=== PATIENT | female | born 1970 | race Caucasian/White ===

== ENCOUNTER 2016-11-26 08:37 | Emergency (ER) | payer OTHER ==
[~2016-11-26] VITALS: Ht 160 cm; Wt 99.0 kg
[~2016-11-26 08:37] MED LIST: CEPH-443 PO; CEPH500C PO; IBUP-1542 PO; ONDA4TAB35 PO
[2016-11-26 08:48] VITALS: Ht 160 cm; Wt 99.0 kg
[2016-11-26] MEDS ORDERED: CETI10CA PO (09:08)
--- NOTE | 2016-11-26 09:29 | ERD ---
ER Documentation Chief Complaint Date/Time DATE: 11/26/16 TIME: 09:26 Chief Complaint RT EAR PAIN X 1 DAY. POSSIBLE FB (INSECT) HPI 46 yo female comes in with a crawling sensation in her right ear canal that started at 3 AM this morning while she was sleeping. Patient reports that this lasted for about 2 hours and alleviated on its own. She did try to clean her ear but did not retrieve any foreign body. She denies any foreign body movement , buzzing, tinnitus. She denies hearing loss or ear pain, otorrhea or discharge. She denies fevers or chills. ROS All systems reviewed and are negative except as per history of present illness. Medications Home Meds Active Scripts Cetirizine Hcl* (Zyrtec*) 10 Mg Capsule, 10 MG PO DAILY, #30 TAB.CHEW Prov:OSMAR JOYNER PA-C 11/26/16 Cephalexin* (Keflex*) 500 Mg Capsule, 500 MG PO QID for 7 Days, CAP Prov:OSMAR JOYNER PA-C 02/15/16 Ondansetron Hcl* (Zofran* ODT) 4 mg -ODT Tab.disper, 4 MG PO Q6 Y for NAUSEA AND /OR VOMITING, #10 TAB Prov:DEENA WATERMAN NP 08/25/15 Cephalexin* (Cephalexin*) 500 Mg Capsule, 500 MG PO QID for 5 Days, CAP Prov:PALOMO GUERRA MD 11/22/14 Ibuprofen* (Ibuprofen*) 600 Mg Tablet, 600 MG PO Q6, #30 TAB Prov:PALOMO GUERRA MD 11/22/14 Allergies Allergies: Coded Allergies: No Known Allergy (Unverified , 03/02/14) PMhx/Soc History of Surgery: Yes (ECTOPIC PREG , CHOLECYSTECTOMY , shoulder) Anesthesia Reaction: No Hx Neurological Disorder: No Hx Respiratory Disorders: No Hx Cardiac Disorders: No Hx Psychiatric Problems: No Hx Miscellaneous Medical Probl: Yes (diabetes, gastritis) Hx Alcohol Use: No Hx Substance Use: No Hx Tobacco Use: No Smoking Status: Never smoker Physical Exam Vitals Vital Signs Date Time Temp Pulse Resp B/P Pulse Ox O2 Delivery O2 Flow Rate FiO2 11/26/16 08:48 97.3 70 19 136/79 100 Physical Exam General: Well-developed, well-nourished. The patient appears in no acute distress. HEENT: Head is normocephalic, atraumatic. No scleral icterus. Right ear is clear, tympanic membrane is well-visualized, there is no erythema, no drainage, no otorrhea or discharge, no hemotympanum. There is no foreign body. Hearing is normal. Left ear is unremarkable. Neck: Supple. Nontender. Lungs: Clear to auscultation. Normal air movement. Heart: Regular rate and rhythm. S1 and S2 are normal. No murmurs, gallops, or rubs. Abdomen: Nondistended. Extremities: No clubbing or cyanosis. Moving extremities x 4. No weakness. Neurologic: Alert and oriented 3. No focal deficits. Normal speech and gait. Skin: Normal turgor. No rash or lesions. Procedures/MDM 46-year-old female comes in with a crawling sensation in her right ear canal, she states it lasted about 2 hours and relieved on its own. Differential diagnoses are considered with are not limited to foreign body, tinnitus, allergic rhinitis, tympanic membrane perforation, serous otitis media. She at this time states she is asymptomatic, does not have any pain or and her ear does appear to be normal. There is no foreign body seen. Patient is to return if she has any pain, drainage, return of symptoms, in the meantime, patient will be started on Zyrtec. Departure Diagnosis: Primary Impression: Normal physical examination Condition: Good Patient Instructions: Normal Exam, (Child) (Adult) Additional Instructions: Call your primary care doctor TOMORROW for an appointment during the next 1-2 days.See the doctor sooner or return here if your condition worsens before your appointment time. OSMAR JOYNER PA-C Nov 26, 2016 09:29
== END 2016-11-26 09:20 | disposition home or self-care (01) ==
LOC: FTE 08:37
DX: Z00.00 Encounter for general adult medical examination without abnormal findings (principal); E11.9 Type 2 diabetes mellitus without complications
CPT/HCPCS: 99283

== ENCOUNTER 2018-12-20 11:01 | Emergency (ER) | payer OTHER ==
[~2018-12-20] VITALS: Ht 165.1 cm; Wt 84.0 kg
[~2018-12-20 11:01] MED LIST changes: +CETI10CA PO; +LORA-441 PO
[2018-12-20 11:10] VITALS: Ht 165.1 cm; Wt 84.0 kg
--- NOTE | 2018-12-20 12:26 | ERD ---
ER Documentation Chief Complaint Chief Complaint pt is bib self with c/o vaginal dryness and "feels swollen" HPI Patient is a 48 years old female presenting to the clinic for severe dry vagina and pruritus x few weeks. Patient reports LMP in mid October (cannot recall exact date). Patient reports dryness makes it very painful. Patient denies , urinary symptoms, and vaginal discharge. Patient denies taking any OTC medication. ROS All systems reviewed and are negative except as per history of present illness. Medications Home Meds Active Scripts Fluconazole* (Diflucan*) 150 Mg Tablet, 150 MG PO ONCE, #1 TAB Prov:MISAEL TOMPKINS PA-C 12/20/18 Estradiol* (Estrace* Vag) 0.01%-42.5GM Vaginal Cream..g., 1 APPLIC VAG BID for 7 Days, #1 TUB Prov:MISAEL TOMPKINS PA-C 12/20/18 Lorazepam* (Ativan*) 0.5 Mg Tablet, 0.5 MG PO Q8H PRN for ANXIETY, #10 TAB Prov:CHAYO METCALF MD 03/04/18 Ibuprofen* (Motrin*) 600 Mg Tab, 600 MG PO Q8, #30 TAB Prov:CHAYO METCALF MD 03/04/18 Cetirizine Hcl* (Zyrtec*) 10 Mg Capsule, 10 MG PO DAILY, #30 TAB.CHEW Prov:OSMAR JOYNER PA-C 11/26/16 Cephalexin* (Keflex*) 500 Mg Capsule, 500 MG PO QID for 7 Days, CAP Prov:OSMAR JOYNER PA-C 02/15/16 Ondansetron Hcl* (Zofran* ODT) 4 mg -ODT Tab.disper, 4 MG PO Q6 PRN for NAUSEA AND/OR VOMITING, #10 TAB Prov:DEENA WATERMAN NP 08/25/15 Cephalexin* (Cephalexin*) 500 Mg Capsule, 500 MG PO QID for 5 Days, CAP Prov:PALOMO GUERRA MD 11/22/14 Ibuprofen* (Ibuprofen*) 600 Mg Tablet, 600 MG PO Q6, #30 TAB Prov:PALOMO GUERRA MD 11/22/14 Allergies Allergies: Coded Allergies: No Known Allergy (Unverified , 03/02/14) PMhx/Soc History of Surgery: Yes (ECTOPIC PREG , CHOLECYSTECTOMY , shoulder) Anesthesia Reaction: No Hx Neurological Disorder: No Hx Respiratory Disorders: No Hx Cardiac Disorders: No Hx Psychiatric Problems: No Hx Miscellaneous Medical Probl: Yes ( gastritis) Hx Alcohol Use: No Hx Substance Use: No Hx Tobacco Use: No Smoking Status: Never smoker Physical Exam Vitals Vital Signs Date Temp Pulse Resp B/P (MAP) Pulse Ox O2 O2 Flow FiO2 Time Delivery Rate 12/20/18 98.9 96 16 147/90 99 11:10 (109) Physical Exam Const: No acute distress Head: Atraumatic Eyes: Normal Conjunctiva ENT: Normal External Ears, Nose and Mouth. Neck: Full range of motion. No meningismus. Resp: Clear to auscultation bilaterally Cardio: Regular rate and rhythm, no murmurs Abd: Soft, non tender, non distended. Normal bowel sounds Skin: No petechiae or rashes Back: No midline or flank tenderness Ext: No cyanosis, or edema Neur: Awake and alert Psych: Normal Mood and Affect External vaginal Exam (ANEUDY Maritnez): Dry, atrophic external vagina without any rash or mass. No discharge noted. Results 24 hrs Laboratory Tests Test 12/20/18 12:13 12/20/18 12:18 Urine Color STRAW Urine Clarity CLEAR Urine pH 6.0 Urine Specific Eva 1.033 Urine Ketones NEGATIVE mg/dL Urine Nitrite NEGATIVE mg/dL Urine Bilirubin NEGATIVE mg/dL Urine Urobilinogen NEGATIVE mg/dL Urine Leukocyte Esterase TRACE Roni/ul Urine Microscopic RBC 6 /HPF Urine Microscopic WBC 1 /HPF Urine Squamous Epithelial Cells FEW /HPF Urine Bacteria FEW /HPF Urine Yeast (Budding) FEW /HPF Urine Hemoglobin 1+ mg/dL Urine Glucose 3+ mg/dL Urine Total Protein NEGATIVE mg/dl POC Beta HCG, Qualitative NEGATIVE Procedures/MDM Patient was seen and evaluated for dry vagina most consistent with Atrophic Vaginitis. Urinalysis revealed trace bacteria, yeast, and slightly elevated WBC. Urine is negative. Patient is stable and ready for discharge. F/U with [facility] and PCP. Patient will be discharged with estradiol vaginal cream and Diflucan. Departure Diagnosis: Primary Impression: Vaginitis Chronicity: acute Qualified Codes: N76.0 - Acute vaginitis Additional Impression: Atrophic vaginitis Condition: Stable Patient Instructions: Vaginitis, Atrophic Referrals: [facility] Additional Instructions: Paciente aconseja volver a Departamento de urgencias inmediatamente para s ntomas nuevos o que empeoran . Paciente aconseja posteriores con el PCP en 2-3 harris . Paciente verbaliza la comprehensin y est de acuerdo con el tratamiento y el curso de accin. Si el paciente no tiene ninguna de atencin primaria pueden seguir con [facility] [address] [place] [address] o [facility] + [address] [address] MISAEL TOMPKINS PA-C Dec 20, 2018 12:26
[2018-12-20] MEDS ORDERED: EST42.5C VAG (13:01)
[2018-12-20] MEDS ORDERED: FLUC150T PO (13:08)
[2018-12-20 13:19] VITALS: BP 132/66; PULSE 85; RESP 14
== END 2018-12-20 13:23 | disposition home or self-care (01) ==
LOC: FTE 11:01
DX: N95.2 Postmenopausal atrophic vaginitis (principal)
CPT/HCPCS: 81001; 81025; Z7502; 99284

== ENCOUNTER 2019-01-06 17:57 | Emergency (ER) | payer OTHER ==
[~2019-01-06] VITALS: Ht 160 cm; Wt 107.4 kg
[~2019-01-06 17:57] MED LIST changes: +EST42.5C VAG; +FLUC150T PO
[2019-01-06 18:13] VITALS: BP 130/58; PULSE 82; RESP 17; Ht 160 cm; Wt 107.4 kg
--- NOTE | 2019-01-06 18:49 | ERD ---
ER Documentation Chief Complaint Chief Complaint VAGINAL ITCHING X1 WEEK, NO DISCHARGE HPI 48-year-old female, with history of diabetes, presents to the emergency department, complaining of 1 week with vaginal itching but no dysuria, no vaginal discharge, no abdominal pain, no pelvic pain, no nausea or vomiting. Th e patient denies fever or chills. ROS All systems reviewed and are negative except as per history of present illness. Medications Home Meds Active Scripts Nystatin-Triamcinolone* (Nystatin-Triamcinolone* Cream) 15 Gm Cream.gm., 1 APPLIC TOP BID for 7 Days, #1 TUB Prov:CHAYO METCALF MD 01/06/19 Fluconazole* (Diflucan*) 150 Mg Tablet, 150 MG PO ONCE, #1 TAB Prov:CHAYO METCALF MD 01/06/19 Fluconazole* (Diflucan*) 150 Mg Tablet, 150 MG PO ONCE, #1 TAB Prov:MISAEL TOMPKINS PA-C 12/20/18 Estradiol* (Estrace* Vag) 0.01%-42.5GM Vaginal Cream..g., 1 APPLIC VAG BID for 7 Days, #1 TUB Prov:MISAEL TOMPKINS PA-C 12/20/18 Lorazepam* (Ativan*) 0.5 Mg Tablet, 0.5 MG PO Q8H PRN for ANXIETY, #10 TAB Prov:CHAYO METCALF MD 03/04/18 Ibuprofen* (Motrin*) 600 Mg Tab, 600 MG PO Q8, #30 TAB Prov:CHAYO METCALF MD 03/04/18 Cetirizine Hcl* (Zyrtec*) 10 Mg Capsule, 10 MG PO DAILY, #30 TAB.CHEW Prov:OSMAR JOYNER PA-C 11/26/16 Cephalexin* (Keflex*) 500 Mg Capsule, 500 MG PO QID for 7 Days, CAP Prov:OSMAR JOYNER PA-C 02/15/16 Ondansetron Hcl* (Zofran* ODT) 4 mg -ODT Tab.disper, 4 MG PO Q6 PRN for NAUSEA AND/OR VOMITING, #10 TAB Prov:DEENA WATERMAN NP 08/25/15 Cephalexin* (Cephalexin*) 500 Mg Capsule, 500 MG PO QID for 5 Days, CAP Prov:PALOMO GUERRA MD 11/22/14 Ibuprofen* (Ibuprofen*) 600 Mg Tablet, 600 MG PO Q6, #30 TAB Prov:PALOMO GUERRA MD 11/22/14 Allergies Allergies: Coded Allergies: No Known Allergy (Unverified , 03/02/14) PMhx/Soc History of Surgery: Yes (ECTOPIC PREG , CHOLECYSTECTOMY , shoulder) Anesthesia Reaction: No Hx Neurological Disorder: No Hx Respiratory Disorders: No Hx Cardiac Disorders: No Hx Psychiatric Problems: No Hx Miscellaneous Medical Probl: Yes ( gastritis) Hx Alcohol Use: No Hx Substance Use: No Hx Tobacco Use: No FmHx Family History: diabetes; No coronary disease Physical Exam Vitals Vital Signs Date Temp Pulse Resp B/P (MAP) Pulse Ox O2 O2 Flow FiO2 Time Delivery Rate 01/06/19 98.1 82 17 130/58 97 18:13 (82) Physical Exam Const: No acute distress Head: Atraumatic Eyes: Normal Conjunctiva ENT: Normal External Ears, Nose and Mouth. Neck: Full range of motion. No meningismus. Resp: Clear to auscultation bilaterally Cardio: Regular rate and rhythm, no murmurs Abd: Soft, non tender, non distended. Normal bowel sounds exam: Deferred at this time. Skin: No petechiae or rashes Back: No midline or flank tenderness Ext: No cyanosis, or edema Neur: Awake and alert Psych: Normal Mood and Affect Procedures/MDM Vital signs stable. Differential diagnosis considered include UTI, cystitis, yeast infection, vaginitis, bacterial vaginosis, pelvic inflammatory disease, STI's . Less likely malignancy or acute abdomen. During the ED course the patient remained stable, no new complaints. Results and clinical impression discussed with the patient who agrees with management. The patient is stable to be treated outpatient and will be discharged home; some side effects of prescribed medications (headache, rash, nausea, vomiting, diarrhea, drowsiness, habituation, bleeding, hypertension, interactions with other medications) were reviewed. Follow up with the primary care provider in the next 48h has been recommended. If symptoms persist, worsen or new symptoms develop, then patient should return to the ED immediately. Instructions explained and given directly by me to the patient with acknowledgment and demonstrated understanding. Disclaimer: Inadvertent spelling and grammatical errors are likely due to EHR/dictation software use and do not reflect on the overall quality of patient care. Also, please note that the electronic time recorded on this note does not necessarily reflect the actual time of the patient encounter. Departure Diagnosis: Primary Impression: Vaginitis Condition: Stable Additional Instructions: Muchas chel por [facility] para conklin servicio. Esperamos que en conklin visita a la ovidio de emergencia conklin problema medico haya sido solucionado y que se sienta mucho mejor. Para estar seguros que conklin mejoria sigue en proceso, le pedimos el favor de hacer ryan monique de seguimiento medico con conklin doctor primario en los proximos 2-4 chopra. Lleve con usted estos documentos y las medicinas recetadas. Si vanessa sintomas empeoran, NO SE ESPERE, por favor regrese a ovidio de emergencia INMEDIATAMENTE. En per que usted no tenga un mdico de atencin primaria: Llame al mdico o clnica comunitaria de referencia que aparece abajo cat las horas de consultorio para hacer ryan monique para que le vean. CLINICAS: [facility] [id number] [facility] [phone] [facility] [phone] [facility] [phone] [facility] [phone] [address] [facility] [address] [phone] MD Jan 06, 2019 18:49
[2019-01-06] MEDS ORDERED: FLUC150T PO (18:50)
[2019-01-06] MEDS ORDERED: NYST15CR36 TOP (18:50)
== END 2019-01-06 18:52 | disposition home or self-care (01) ==
LOC: FTE 17:57 → E/R 18:52
DX: N76.0 Acute vaginitis (principal)
CPT/HCPCS: 99283